=== PATIENT | female | born 1935 | race Hispanic/Latino ===

== ENCOUNTER 2017-12-18 15:39 | Emergency (ER) | payer MEDICARE ==
[~2017-12-18] VITALS: Ht 162.6 cm; Wt 66.2 kg
[~2017-12-18 15:39] MED LIST: ASPIR 8181 MG PO; ATORVASTATIN CA20 MG PO; LISINOPRIL-HCT1 EAC1 PO; METOPROLOL TART50 MG PO; NORVASC10 MG PO
[2017-12-18] MEDS ORDERED: CLONIDINE HCL 0.1 MG TAB PO ONE (16:15)
[2017-12-18] MEDS ORDERED: LOSARTAN POTASSIUM 100 MG TAB PO ONE (16:15)
[2017-12-18 16:30] LABS: BASOPHILS # (AUTO) 0.1 (0.0-0.1); BASOPHILS % 0.5 % (0.0-1.0); EOSINOPHILS # (AUTO) 0.1 (0.0-0.4); EOSINOPHILS % 0.8 % (0.0-6.0); HEMATOCRIT 38.8 % (34.2-44.1); HEMOGLOBIN 13.2 g/dL (12.0-16.0); LYMPHOCYTES # (AUTO) 1.2 (1.0-3.2); MEAN CORPUSCULAR HEMOGLOBIN 29.1 pg (28-32); MEAN CORPUSCULAR VOLUME 85.5 fL (81-99); MONOCYTES # (AUTO) 0.7 (0.2-0.8); MONOCYTES % 6.6 % (4.4-11.3); NEUTROPHILS % 79.7 % (38.7-80.0); PLATELET COUNT 281 x10e3/uL (140-360); RED BLOOD COUNT 4.54 x10e6/uL (3.6-5.1); RED CELL DISTRIBUTION WIDTH 14.3 % (11.7-14.4)
[2017-12-18 16:46] LABS: ALBUMIN/GLOBULIN RATIO 0.9 (0.8-2.0); ANION GAP 15.1 mmol/L (8-16); CALCIUM 9.7 mg/dL (8.4-10.2); CREATININE, SERUM 1.89 mg/dL (0.57-1.11); POTASSIUM 4.1 mmol/L (3.5-5.1)
[2017-12-18 17:35] VITALS: BP 161/77
== END 2017-12-18 17:44 | disposition home or self-care (01) ==
LOC: ER 15:39
DX: I10 Essential (primary) hypertension (principal); N18.9 Chronic kidney disease, unspecified
CPT/HCPCS: 36415; 80053; 84484; 85025; 99283

== ENCOUNTER 2022-01-07 17:31 | Inpatient (IN) | payer MEDICARE ==
[~2022-01-07] VITALS: Ht 162.6 cm; Wt 66.2 kg
[2022-01-07 17:53] LABS: BASOPHILS % 0.4 % (0.0-1.0); EOSINOPHILS # (AUTO) 0.1 (0.0-0.4); EOSINOPHILS % 0.5 % (0.0-6.0); HEMATOCRIT 26.7 % (34.2-44.1); HEMOGLOBIN 8.9 g/dL (12.0-16.0); LYMPHOCYTES # (AUTO) 1.1 (1.0-3.2); LYMPHOCYTES % 11.5 % (18.0-39.1); MEAN CORPUSCULAR HEMOGLOBIN 32.8 pg (28-32); MEAN CORPUSCULAR HGB CONC 33.3 g/dL (31-35); MEAN CORPUSCULAR VOLUME 98.5 fL (81-99); MONOCYTES # (AUTO) 0.5 (0.2-0.8); MONOCYTES % 5.6 % (4.4-11.3); NEUTROPHILS # (AUTO) 7.4 (2.1-6.9); NEUTROPHILS % 81.7 % (38.7-80.0); PLATELET COUNT 308 x10e3/uL (140-360); RED BLOOD COUNT 2.71 x10e6/uL (3.6-5.1); RED CELL DISTRIBUTION WIDTH 13.6 % (11.7-14.4)
[2022-01-07] MEDS ORDERED: ASPIRIN 81 MG CHEW TAB PO ONE (18:00)
[2022-01-07] MEDS ORDERED: CLOPIDOGREL BISULFATE 75 MG TAB PO ONE (18:00)
[2022-01-07 18:14] LABS: ALBUMIN 2.7 g/dL (3.5-5.0); ALBUMIN/GLOBULIN RATIO 0.6 (0.8-2.0); CALCIUM 7.1 mg/dL (8.4-10.2); CREATININE, SERUM 6.69 mg/dL (0.57-1.11)
[2022-01-07] MEDS ORDERED: SODIUM CHLORIDE 0.9% 1000ML 1,000 ML ONE (18:15)
[2022-01-07] MEDS ORDERED: IOPAMIDOL 370 MG/ML 100 ML INFUS..BTL INJ ONE ×2 (18:15→19:19)
[2022-01-07] MEDS ORDERED: NITROGLYCERIN/D5W 200 MCG/ML 250 ML ONE (18:15)
[2022-01-07] MEDS ORDERED: HEPARIN SOD/SOD CHLORIDE 2,000 ML ONE (18:15)
[2022-01-07] MEDS ORDERED: MIDAZOLAM HCL 2 MG/2 ML VIAL ONE (18:16)
[2022-01-07] MEDS ORDERED: VERAPAMIL HCL 2.5 MG/ML 2 ML VIAL ONE (18:16)
[2022-01-07] MEDS ORDERED: FENTANYL CITRATE/PF 100MCG/2 ML INJ ONE (18:17)
[2022-01-07 18:20] LABS: CREATINE KINASE MB 0.9 ng/mL (0-5.0)
[2022-01-07] MEDS ORDERED: LIDOCAINE HCL 2% LOCAL 20 ML VIAL ONE (18:24)
[2022-01-07] MEDS ORDERED: METHYLPREDNISOLONE SOD SUCC 125 MG/2ML VIAL ONE (18:36)
[2022-01-07] MEDS ORDERED: DIPHENHYDRAMINE HCL INJ 50 MG/ML VIAL ONE (18:36)
[2022-01-07 20:27] VITALS: BP 169/73
[2022-01-07 21:00] VITALS: BP 185/122
[2022-01-07 22:00] VITALS: BP 169/73
[2022-01-07] MEDS ORDERED: ONDANSETRON HCL INJ 2MG/ML 2ML 2 MG/ML VIAL IV PRN (22:30)
[2022-01-07] MEDS ORDERED: GUAIFENESIN/DEXTROMETHORPHAN LIQD 5 ML UDC PO PRN (22:30)
[2022-01-07] MEDS ORDERED: DOCUSATE SODIUM 100 MG CAP PO PRN (22:30)
[2022-01-07] MEDS ORDERED: ACETAMINOPHEN 325 MG TAB PO PRN (22:30)
[2022-01-07] MEDS ORDERED: MELATONIN 3 MG TAB PO PRN (22:30)
[2022-01-07 23:00] VITALS: BP 162/74
[2022-01-08] VITALS (20 sets, daily range): BP systolic 122–181; BP diastolic 48–78
[2022-01-08] MEDS: HYDRALAZINE HCL 20 MG/ML VIAL IV PRN ×3 (01:16→21:05)
[2022-01-08 05:32] LABS: BASOPHILS % 0.2 % (0.0-1.0); HEMATOCRIT 27.1 % (34.2-44.1); HEMOGLOBIN 9.3 g/dL (12.0-16.0); LYMPHOCYTES # (AUTO) 0.7 (1.0-3.2); MEAN CORPUSCULAR HEMOGLOBIN 33.2 pg (28-32); MEAN CORPUSCULAR HGB CONC 34.3 g/dL (31-35); MEAN CORPUSCULAR VOLUME 96.8 fL (81-99); MONOCYTES # (AUTO) 0.1 (0.2-0.8); MONOCYTES % 0.7 % (4.4-11.3); NEUTROPHILS # (AUTO) 7.4 (2.1-6.9); NEUTROPHILS % 89.9 % (38.7-80.0); PLATELET COUNT 326 x10e3/uL (140-360); RED CELL DISTRIBUTION WIDTH 13.4 % (11.7-14.4)
[2022-01-08 06:09] LABS: ALBUMIN 2.5 g/dL (3.5-5.0); ALBUMIN/GLOBULIN RATIO 0.7 (0.8-2.0); ANION GAP 21.1 mmol/L (8-16); CHOL/HDL RATIO 4.7 (3.0-3.6); CREATININE, SERUM 6.58 mg/dL (0.57-1.11); POTASSIUM 4.1 mmol/L (3.5-5.1)
[2022-01-08 06:13] LABS: CALCIUM 6.9 mg/dL (8.4-10.2)
[2022-01-08 06:38] LABS: THYROID STIMULATING HORMONE 4.068 uIU/mL (0.350-4.940)
[2022-01-08] MEDS: ASPIRIN 81 MG ENTERIC COATED PO SCH (08:31)
[2022-01-08] MEDS: HYDROCHLOROTHIAZIDE 25 MG TAB PO SCH (08:31)
[2022-01-08] MEDS: LISINOPRIL 20 MG TAB PO SCH (08:32)
[2022-01-08] MEDS ORDERED: METOPROLOL TARTRATE 50 MG TAB PO SCH (10:00)
[2022-01-08] MEDS: CALCITRIOL 0.25 MCG CAP PO SCH (14:14)
[2022-01-08] MEDS: CALCIUM CARBONATE 500 MG CHEWABLE TABS PO SCH (16:57)
[2022-01-08] MEDS ORDERED: ATORVASTATIN 40 MG TAB PO SCH (21:00)
[2022-01-09] VITALS: BP 120/39
[2022-01-09 04:00] VITALS: BP 130/60
[2022-01-09 07:52] VITALS: BP 152/52
[2022-01-09] MEDS: CALCITRIOL 0.25 MCG CAP PO SCH (07:57)
[2022-01-09] MEDS: CALCIUM CARBONATE 500 MG CHEWABLE TABS PO SCH (07:57)
[2022-01-09] MEDS: HYDROCHLOROTHIAZIDE 25 MG TAB PO SCH (07:57)
[2022-01-09] MEDS: ASPIRIN 81 MG ENTERIC COATED PO SCH (07:57)
[2022-01-09] MEDS: LISINOPRIL 20 MG TAB PO SCH (07:58)
[2022-01-09 07:59] VITALS: BP 152/52
[2022-01-09] MEDS ORDERED: ONDANSETRON HCL 4 MG ORAL DISINTEGRATING TAB PO PRN (08:00)
[2022-01-09 09:06] VITALS: BP 152/52
== END 2022-01-09 10:45 | disposition hospice, home (50) | DRG 250 ==
LOC: ER 17:46 → ERHOLD 17:56 → CATH LAB V 18:14 → ICU 20:10 → MED/SURG2 01-08 17:46
PROVIDERS: ADMIT Internal Medicine; ATTEND Internal Medicine
PROC: 02703ZZ Dilation of Coronary Artery, One Artery, Percutaneous Approach (ICD-10-PCS; principal; 2022-01-07)
PROC: 4A023N7 Measurement of Cardiac Sampling and Pressure, Left Heart, Percutaneous Approach (ICD-10-PCS; 2022-01-07)
PROC: B2111ZZ Fluoroscopy of Multiple Coronary Arteries using Low Osmolar Contrast (ICD-10-PCS; 2022-01-07)
PROC: 3E1M39Z Irrigation of Peritoneal Cavity using Dialysate, Percutaneous Approach (ICD-10-PCS; 2022-01-08)
DX: I21.19 ST elevation (STEMI) myocardial infarction involving other coronary artery of inferior wall (principal); N18.6 End stage renal disease; I12.0 Hypertensive chronic kidney disease with stage 5 chronic kidney disease or end stage renal disease; E87.2 Acidosis; E87.1 Hypo-osmolality and hyponatremia; Z99.2 Dependence on renal dialysis; E88.09 Other disorders of plasma-protein metabolism, not elsewhere classified; R00.1 Bradycardia, unspecified; Z66 Do not resuscitate; D63.8 Anemia in other chronic diseases classified elsewhere; R62.7 Adult failure to thrive; Z68.25 Body mass index [BMI] 25.0-25.9, adult; I48.91 Unspecified atrial fibrillation; E83.51 Hypocalcemia; Z87.891 Personal history of nicotine dependence; Z20.822 Contact with and (suspected) exposure to COVID-19
CPT/HCPCS: 36415; 71045; 76937; 80053; 80061; 82550; 82553; 83735; 84443; 84484; 85025; 93005; 93454; 94799; 99152; 99153; 99285; C1725; C1766; C1769; C1887; C1894; J0360; J1200; J2001; J2250; J2930; J3010; J7030; Q9967; U0002